=== PATIENT | female | born 1950 | race Caucasian/White ===

== ENCOUNTER → 2016-08-18 | Outpatient (CLI) | payer MEDICARE ==
--- NOTE | 2016-08-18 15:18 | US ---
EXAMINATION TYPE: US kidneys/renal and bladder DATE OF EXAM: 08/18/2016 1:51 PM COMPARISON: CT abdomen and pelvis 20 November 2014 CLINICAL HISTORY: hematuria. R 31.9 EXAM MEASUREMENTS: Right Kidney: 9.8 x 3.4 x 4.9 cm Left Kidney: 10.6 x 4.8 x 5.2 cm ANATOMY: Right Kidney: No hydronephrosis or masses seen Left Kidney: No hydronephrosis or masses seen Bladder: within normal limits Bilateral Jets seen: yes There is no evidence for hydronephrosis at this point in time. No nephrolithiasis is seen. No igo s are identified. The urinary bladder is anechoic. Bilateral ureteral jets are seen. Cortical medullary differentiation is maintained IMPRESSION: No abnormality evident to account for patient's symptoms. Normal Values: Renal Length = 9 - 12cm Bladder Wall: < 0.3cm
== END | disposition home or self-care (01) ==
LOC: RADUSWWP 13:34
PROVIDERS: ATTEND Internal Medicine Geriatric Medicine
DX: R31.9 Hematuria, unspecified (principal)
CPT/HCPCS: 76770

== ENCOUNTER → 2016-09-30 | Outpatient (CLI) | payer MEDICARE ==
--- NOTE | 2016-10-01 08:08 | MM ---
Reason for exam: screening (asymptomatic). Last mammogram was performed 1 year and 4 months ago. History: Patient is postmenopausal. Physical Findings: A clinical breast exam by your physician is recommended on an annual basis and results should be correlated with mammographic findings. MG 3D Screening Mammo W/Cad Bilateral CC and MLO view(s) were taken. Prior study comparison: May 20, 2015, bilateral MG screening mammo w CAD. December 03, 2011, bilateral digital screening mammo w/CAD. There are scattered fibroglandular densities. There is no discrete abnormality. No significant changes when compared with prior studies. ASSESSMENT: Negative, BI-RAD 1 RECOMMENDATION: Routine screening mammogram of both breasts in 1 year.
== END | disposition home or self-care (01) ==
LOC: RADMAMWWP 07:19
PROVIDERS: ATTEND Internal Medicine Geriatric Medicine
DX: Z12.31 Encounter for screening mammogram for malignant neoplasm of breast (principal)
CPT/HCPCS: 77063; G0202

== ENCOUNTER 2016-10-27 09:00 | Day surgery (SDC) | payer MEDICARE ==
[2016-10-26 11:39] VITALS: BMI 22.8
[~2016-10-27 09:00] MED LIST: LACTATED RINGERS 1,000 ML IV SCH
[2016-10-27 10:10] VITALS: TEMP 96.9
[2016-10-27] MEDS ORDERED: PROPOFOL 10 MG/ML 20 ML VIAL IV ONE ×2 (10:18→11:00)
[2016-10-27] MEDS ORDERED: LIDOCAINE 1% INJ 10MG/ML (20 ML MDV) ONE ×2 (10:18→11:00)
[2016-10-27] MEDS ORDERED: LIDOCAINE 1% 20 ML VIAL (10MG/ML) FOR IV START INTRADERMA ONE (10:19)
[2016-10-27 11:27] VITALS: RESP 18
--- NOTE | 2016-10-27 11:32 | P.PCN ---
Date of Procedure: 10/27/16 Procedure(s) Performed: Procedure: Colonoscopy and biopsy. Preoperative diagnosis: Abdominal pain and change in bowel habits. Postoperative diagnosis: 1. Mild diverticulosis with no evidence of acute diverticulitis or strictures. 2. Minimal erythema and friability in the rectum of on clear clinical significance. 3. Biopsies obtained from the terminal ileum right colon and rectum. Preparation: HalfLytely prep. Sedation: Was provided by anesthesia. Brief clinical history: The patient is a 66-year-old female who is referred for this evaluation because of abdominal pain and change in bowel habits mostly in the form off more frequent and less formed stools which she has been experiencing for the last month or so. The patient had 2 prior colonoscopies the last was in 2008. There is no history of polyps. Her base line was 2 well formed bowel movements daily. The patient has no bleeding or other alarm symptoms. This evaluation is to assess for inflammatory bowel disease or neoplasia or other pathology. Procedure: With the patient on her left lateral decubitus position and after informed consent and adequate sedation, the perianal area was inspected and it did not show any fissures or fistulas. There were no masses felt on digital rectal examination. The Olympus CFQ 160L video colonoscope was then inserted in the rectum in the usual fashion and advanced to the cecum. I was able to obtain a blind biopsy from the terminal ileum as well as biopsies from the right colon and rectum before the endoscope was withdrawn. There was occasional diverticular orifices seen in the sigmoid and around the hepatic flexure. I did not see any polyps or tumors. The mucosa in the rectum close to the anorectal junction showed some erythema and friability but there were no ulcers or spontaneous bleeding. The patient tolerated the procedure well. Plan: The patient was reassured. Will await biopsy results and make further plans based on her course and biopsy results. She will follow-up with you as planned and I will be happy to see in the office if her symptoms persist.
[2016-10-27 12:00] VITALS: BP 132/80; PULSE 69
== END 2016-10-27 12:25 | disposition home or self-care (01) ==
LOC: ORWHC2ENDO 09:00
DX: K57.30 Diverticulosis of large intestine without perforation or abscess without bleeding (principal); R19.4 Change in bowel habit; K62.89 Other specified diseases of anus and rectum; Z79.899 Other long term (current) drug therapy
CPT/HCPCS: 88305; 45380; J2001; J2704

== ENCOUNTER → 2016-11-03 | Outpatient (CLI) | payer MEDICARE ==
--- NOTE | 2016-11-03 10:25 | US ---
EXAMINATION TYPE: US abdomen complete DATE OF EXAM: 11/03/2016 8:19 AM COMPARISON: NONE CLINICAL HISTORY: 66-year-old female with R10.84 Generalized abdominal pain. TECHNIQUE: Multiple sonographic images of the abdomen were obtained. FINDINGS: Liver Length: 12.5 cm Gallbladder Wall: 0.2 cm CBD: 0.4 cm Spleen: 9.5 cm Right Kidney: 10.3 x 3.2 x 4.4 cm Left Kidney: 9.8 x 4.5 x 4.9 cm Pancreas: Grossly unremarkable. Liver: Multiple cysts noted largest measuring 3.3 x 2.7 x 3.6cm with a partially exophytic anterior wall. Gallbladder: No abnormal gallbladder distention, wall thickening, pericholecystic fluid, or shadow ing calculi. Evidence for sonographic Wray's sign: no CBD: wnl Spleen: wnl Right Kidney: No hydronephrosis Left Kidney: No hydronephrosis Upper IVC: wnl Abd Aorta: wnl IMPRESSION: A few hepatic cysts, largest measures 3.6 cm in the anterior left hepatic lobe.
== END | disposition home or self-care (01) ==
LOC: RADUSWWP 07:29
PROVIDERS: ATTEND Internal Medicine Geriatric Medicine
DX: K76.89 Other specified diseases of liver (principal)
CPT/HCPCS: 76700

== ENCOUNTER → 2017-05-25 | Outpatient (CLI) | payer MEDICARE ==
[2017-05-25 09:08] LABS: CH 30.9; CHCM 32.3; HCT 46.9 % (34.0-46.0); HDW 2.34; HGB 15.1 gm/dL (11.4-16.0); MCH 30.9 pg (25.0-35.0); MCHC 32.2 g/dL (31.0-37.0); MCV 95.9 fL (80.0-100.0); RBC 4.89 m/uL (3.80-5.40); WBC 4.8 k/uL (3.8-10.6)
[2017-05-25 10:17] LABS: C Reactive Protein 6.1 mg/L (<10.0)
[2017-05-25 10:43] LABS: Erythrocyte Sedimentation Rate 13 mm/hr (0-20)
[2017-05-25 16:58] LABS: Tis Transglutaminase IgA Unit <0.5 AI; Tis Transglutaminase IgG Unit <0.8 U/mL
== END | disposition home or self-care (01) ==
LOC: LABWHC1 08:24
DX: R19.4 Change in bowel habit (principal)
CPT/HCPCS: 36415; 83516; 84439; 84443; 85027; 85652; 86140; 89055

== ENCOUNTER → 2018-08-02 | Outpatient (CLI) | payer MEDICARE ==
--- NOTE | 2018-08-02 14:59 | USB ---
Reason for exam: clinical finding. History: Patient is postmenopausal. US Breast BILAT Right complete breast ultrasound includes all four quadrants, the retroareolar region and axilla. Finding demonstrates no cystic or solid lesion seen. Left complete breast ultrasound includes all four quadrants, the retroareolar region and axilla. Finding demonstrates no cystic or solid lesion seen. No suspicious sonographic finding. No solid or cystic masses. These results were verbally communicated with the patient and result sheet given to the patient on 08/02/18. ASSESSMENT: Incomplete: need additional imaging evaluation, BI-RAD 0 RECOMMENDATION: Follow-up diagnostic mammogram of both breasts.
--- NOTE | 2018-08-02 15:00 | MM ---
Reason for exam: additional evaluation requested from prior study. Last mammogram was performed 1 year and 10 months ago. History: Patient is postmenopausal. MG 3D Diag Mammo W/Cad DENG Bilateral CC and MLO view(s) were taken. Prior study comparison: September 30, 2016, bilateral MG 3d screening mammo w/cad. May 20, 2015, bilateral MG screening mammo w CAD. The breast tissue is heterogeneously dense. This may lower the sensitivity of mammography. No suspicious abnormality. These results were verbally communicated with the patient and result sheet given to the patient on 08/02/18. ASSESSMENT: Negative, BI-RAD 1 RECOMMENDATION: Routine screening mammogram of both breasts in 1 year.
== END | disposition home or self-care (01) ==
LOC: RADUSWWP 12:50
PROVIDERS: ATTEND Internal Medicine Geriatric Medicine
DX: N64.4 Mastodynia (principal)
CPT/HCPCS: 77066; 76641; G0279; 77062

== ENCOUNTER → 2019-09-14 | Outpatient (CLI) | payer MEDICARE ==
--- NOTE | 2019-09-15 13:36 | MM ---
Reason for exam: screening (asymptomatic). Last mammogram was performed 1 year and 1 month ago. History: Patient is postmenopausal. Physical Findings: A clinical breast exam by your physician is recommended on an annual basis and results should be correlated with mammographic findings. MG 3D Screening Mammo W/Cad Bilateral CC and MLO view(s) were taken. Prior study comparison: August 02, 2018, bilateral MG 3d diag mammo w/cad DENG. September 30, 2016, bilateral MG 3d screening mammo w/cad. The breast tissue is heterogeneously dense. This may lower the sensitivity of mammography. No suspicious abnormality. No significant changes when compared with prior studies. ASSESSMENT: Negative, BI-RAD 1 RECOMMENDATION: Routine screening mammogram of both breasts in 1 year.
== END | disposition home or self-care (01) ==
LOC: RADMAMWWP 08:14
PROVIDERS: ATTEND Internal Medicine Geriatric Medicine
DX: Z12.31 Encounter for screening mammogram for malignant neoplasm of breast (principal)
CPT/HCPCS: 77063; 77067

== ENCOUNTER → 2020-07-29 | Outpatient (CLI) | payer MEDICARE ==
--- NOTE | 2020-07-29 10:01 | XR ---
EXAMINATION TYPE: XR chest 2V DATE OF EXAM: 07/29/2020 COMPARISON: NONE TECHNIQUE: PA and lateral views submitted. HISTORY: Cough FINDINGS: The lungs are clear and there is no pneumothorax, pleural effusion, or focal pneumonia. Heart size normal. No overt failure. Hyperinflation suggests COPD. Hypertrophic and degenerative change of the s pine. IMPRESSION: 1. No acute process.
== END | disposition home or self-care (01) ==
LOC: RADXRMAIN 08:15
PROVIDERS: ATTEND Otolaryngology
DX: R05 Cough (principal)
CPT/HCPCS: 71046

== ENCOUNTER → 2020-10-16 | Outpatient (CLI) | payer MEDICARE ==
--- NOTE | 2020-10-18 11:42 | MM ---
Reason for exam: screening (asymptomatic). Last mammogram was performed 1 year and 1 month ago. History: Patient is postmenopausal. Physical Findings: A clinical breast exam by your physician is recommended on an annual basis and results should be correlated with mammographic findings. MG 3D Screening Mammo W/Cad Bilateral CC and MLO view(s) were taken. Prior study comparison: September 14, 2019, bilateral MG 3d screening mammo w/cad. August 02, 2018, bilateral MG 3d diag mammo w/cad DENG. The breast tissue is heterogeneously dense. This may lower the sensitivity of mammography. No significant changes when compared with prior studies. ASSESSMENT: Negative, BI-RAD 1 RECOMMENDATION: Routine screening mammogram of both breasts in 1 year.
== END ==
LOC: RADMAMWWP 08:17
PROVIDERS: ATTEND Internal Medicine Geriatric Medicine
DX: Z12.31 Encounter for screening mammogram for malignant neoplasm of breast (principal); Z78.0 Asymptomatic menopausal state
CPT/HCPCS: 77063; 77067

== ENCOUNTER → 2021-01-22 | Outpatient (CLI) | payer MEDICARE ==
--- NOTE | 2021-01-22 13:40 | CONS ---
CONSULTATION DATE OF SERVICE: 01/22/2021 INDICATIONS: This is a 70-year-old lady who has been evaluated in the sleep center for possible obstructive sleep apnea-hypopnea syndrome. HISTORY OF PRESENT ILLNESS/SLEEP-WAKE EVALUATION: Patient's usual sleep schedule from 10 or 11 p.m. until 6:15 a.m. Sometimes she has difficulties to fall asleep, although no TV in the bedroom. She usually sleeps in the back position. According to her , she snores. She wakes up from sleep 3 times with 2 episodes of nocturia. She also wakes up with a dry mouth. In the morning patient wakes up tired. Sometimes has episodes of irritability and anxiety. Tennille Sleepiness Scale increased to 11. The patient may take nap around 12:30 in the afternoon. Rarely feels refreshed after nap. No history of hypnagogic hallucinations, sleep paralysis or cataplexy. PAST MEDICAL HISTORY: Positive for hypertension, hyperlipidemia, acid reflux. PAST SURGICAL HISTORY: One of the parathyroid glands has been removed because of significant increasing of size. MEDICATIONS: Chlorthalidone half tablet of 25 mg once a day. Pantoprazole 30 mg once a day. SOCIAL HISTORY: Negative for smoking or using alcohol. FAMILY HISTORY: Positive for heart problems, cancer, diabetes. REVIEW OF SYSTEMS: Snoring, multiple awakenings from sleep, feeling tightness and sleepiness during the day. No fevers. No double vision. No recent chest pain. No shortness of breath. No abdominal pain. No bleeding episodes. No blood in the urine. No seizure episodes. PHYSICAL EXAMINATION: GENERAL: lady without distress. VITAL SIGNS: BP 146/87, HR 91, RR 14, height 5' 4 ", weight 125.0, body mass index 21.4, temperature 97.5, oxygen saturation at room air 98%. HEENT: PERRLA, EOMI, evaluation of oropharynx showed tongue protrudes midline. Low position of soft palate, Mallampati IV. NECK: Supple, no JVD. Thyroid is not palpable. LUNGS: Clear to percussion and to auscultation. Good air exchange. No wheezing or rhonchi. HEART: S1, S2 regular. No murmurs, gallops, or rubs. ABDOMEN: Soft and nontender. Bowel sounds are present. No organomegaly appreciated. EXTREMITIES: No clubbing or cyanosis. SCRAP DEALER: Awake, alert, and oriented X3. Cranial nerves 2 to 7 intact. There is no fasciculation or atrophy. noted. No focal deficits observed. IMPRESSION: 1. Sleepiness during the day. Tennille sleepiness scale increased to 11. 2. Snoring, multiple awakenings from sleep, extremely low position of soft palate, Mallampati IV. Possible obstructive sleep apnea-hypopnea syndrome. 3. History of hypertension. 4. Hyperlipidemia. 5. Acid reflux. 6. Status post one parathyroid gland removed because of significant increase in size. PLAN: 1. Home sleep apnea test for checking the patient's breathing during sleep. 2. CPAP/BiPAP titration if sleep study confirms obstructive sleep apnea-hypopnea syndrome. 3. Preferable position during sleep on the side. 4. No driving if patient feels any sleepiness. 5. I will see patient for follow up visit to explain results of testing and following plan. Thank you very much for referring this patient for consultation. Sincerely, Rafita Shultz MD, PhD, FAASM Diplomat of [employer]r [employer] [facility] [place] MMODL / IJN: [id number] /
== END ==
LOC: SLEEP 10:39
PROVIDERS: ATTEND Internal Medicine
DX: G47.10 Hypersomnia, unspecified (principal); E78.5 Hyperlipidemia, unspecified; I10 Essential (primary) hypertension; K21.9 Gastro-esophageal reflux disease without esophagitis; Z90.89 Acquired absence of other organs
CPT/HCPCS: 99211

== ENCOUNTER 2021-04-25 08:49 | Day surgery (SDC) | payer MEDICARE ==
[2021-04-24 09:43] VITALS: BMI 19.2
[2021-04-25 09:24] VITALS: TEMP 98.5
[2021-04-25] MEDS: LACTATED RINGERS 1,000 ML IV SCH ×2 (09:31→09:34)
[2021-04-25] MEDS ORDERED: ONDANSETRON 4 MG/2 ML VIAL ONE (09:32)
[2021-04-25] MEDS ORDERED: ONDANSETRON 4 MG/2 ML VIAL IVP ONE (09:33)
[2021-04-25] MEDS ORDERED: LIDOCAINE 1% INJ 10MG/ML (20 ML MDV) ONE (09:37)
[2021-04-25] MEDS ORDERED: PROPOFOL 10 MG/ML 20 ML VIAL IV ONE (09:37)
--- NOTE | 2021-04-25 10:04 | P.PCN ---
Date of Procedure: 04/25/21 Procedure(s) Performed: Brief history: Patient is a pleasant 70-year-old white female scheduled for an elective upper endoscopy as well as colonoscopy as a part of evaluation of epigastric pain, intermittent diarrhea and weight loss of 30 pounds in the last 6 months duration. He was treated with omeprazole and Protonix with no help. Procedure performed: Esophagogastroduodenoscopy with biopsy Colonoscopy with random biopsies Preoperative diagnosis: Epigastric pain/change in bowel habits/progressive weight loss of 30 pounds since onset of the Anesthesia: MAC Procedure: After informed consent was obtained from the patient was brought into the endoscopy unit and IV sedation was administered by anesthesia under continuous monitoring. Initially upper endoscopy was done. The Olympus GF 160 video endoscope was inserted inserted into the mouth and esophagus intubated without any difficulty and was gradually advanced into the stomach and duodenum and carefully examined. The bulb and second part of the duodenum appeared normal. Abscesses were done from the duodenum to rule out celiac disease. The scope was then withdrawn into the stomach adequately insufflated with air and upon careful examination the antrum had mild gastritis and biopsies were done from this area. The body, cardia and fundus appeared normal. The scope was then withdrawn into the esophagus. The GE junction was located at 40 cm to the incisors. It appeared regular witerythema and erosions consistent with LA grade B reflux esophagitis.Rest of the esophagus appeared normal. Patient tolerated the procedure well. At this time the patient continued to remain sedation. Initial digital rectal examination was normal. Olympus CF 160 video colonoscope was then inserted into the rectum and gradually advanced to the cecum without any difficulty. Careful examination was performed as the scope was gradually being withdrawn. The prep was excellent. The cecum, ascending colon, transverse colon, descending colon, sigmoid colon and rectum appeared normal. Scattered sigmoid diverticulosis. Random biopsies were done from ascending and descending colon to rule out microscopic/collagenous colitis. Retroflexion was performed in the rectum and no lesions were noted. Patient tolerated the procedure well. Impression: 1. Upper endoscopy revealed mild antral gastritis and LA grade B reflux esophagitis. 2. Colonoscopy was essentially within normal limits with no evidence of colitis or colorectal neoplasia. Recommendations: Findings of this examination were discussed with the patient as well as
[2021-04-25 10:22] VITALS: BP 120/81; PULSE 70; RESP 16
== END 2021-04-25 10:46 | disposition home or self-care (01) ==
LOC: ORWHC2ENDO 08:49
PROVIDERS: ATTEND Internal Medicine Gastroenterology
DX: K29.50 Unspecified chronic gastritis without bleeding (principal); K21.00 Gastro-esophageal reflux disease with esophagitis, without bleeding; R19.7 Diarrhea, unspecified
CPT/HCPCS: 88305; 45380; 43239; J2405; J2001; J2704

== ENCOUNTER → 2021-11-11 | Outpatient (CLI) | payer MEDICARE ==
--- NOTE | 2021-11-12 10:17 | MM ---
Reason for exam: screening (asymptomatic). Last mammogram was performed 1 year and 1 month ago. History: Patient is postmenopausal. Physical Findings: A clinical breast exam by your physician is recommended on an annual basis and results should be correlated with mammographic findings. MG 3D Screening Mammo W/Cad Bilateral CC and MLO view(s) were taken. Prior study comparison: October 16, 2020, bilateral MG 3d screening mammo w/cad. September 14, 2019, bilateral MG 3d screening mammo w/cad. The breast tissue is heterogeneously dense. This may lower the sensitivity of mammography. There is no discrete abnormality. ASSESSMENT: Negative, BI-RAD 1 RECOMMENDATION: Routine screening mammogram of both breasts in 1 year.
== END | disposition home or self-care (01) ==
LOC: RADMAMWWP 14:55
PROVIDERS: ATTEND Internal Medicine Geriatric Medicine
DX: Z12.31 Encounter for screening mammogram for malignant neoplasm of breast (principal); Z78.0 Asymptomatic menopausal state
CPT/HCPCS: 77063; 77067

== ENCOUNTER → 2021-12-11 | Outpatient (CLI) | payer MEDICARE ==
--- NOTE | 2021-12-11 22:26 | BD ---
EXAMINATION TYPE: Axial Bone Density DATE OF EXAM: 12/11/2021 COMPARISON: NONE CLINICAL HISTORY: 71 years year old Female. ICD-10 CODE: M81.0 OSTEOPOROSIS Height: 64 Weight: 118.2 FRAX RISK QUESTIONS: Alcohol (3 or more units per day): NO Family History (Parent hip fracture): NO Glucocorticoids (More than 3mos): NO (Ex: prednisone, prednisolone, methylprednisolone, dexamethasone, and hydrocortisone). History of Fracture in Adulthood: NO Secondary Osteoporosis: 1. Type 1 Diabetes: NO 2. Hyperthyroidism: YES 3. Menopause before 45: YES 4. Malnutrition: NO 5. Chronic liver disease: NO Rheumatoid Arthritis: NO Current Tobacco Use: NO RISK FACTORS HISTORY OF: Hip Fracture (Right/Left): NO Spine Fracture: NO History of Wrist Fracture: NO Surgery to Spine/Hip(right/left)/Wrist (right/left): NO Family History of Osteoporosis: NO Active: YES Diet low in dairy products/other sources of calcium: YES Postmenopausal woman: YES Take estrogen and/or progesterone medications: NO Lost more than 2 inches in height since high school: NO Frequent falls: NO Poor Health: NO Hyperparathyroidism: YES, ONE PARATHYROID GLAND REMOVED 2011 Adrenal Insufficiency: NO MEDICATIONS: Prednisone or other steroids: NO Thyroid Medications: NO Additional Medications: BP MEDS, CALCIUM, MAGNI USM, EXAM MEASUREMENTS: Bone mineral densitometry was performed using the [employer] [place] System. Bone mineral density as measured about the Lumbar spine is: ----- L1-L4(G/cm2): 0.899 T Score Values are as follows: ----- L1: -2.2 ----- L2: -2.9 ----- L3: -2.2 ----- L4: -2.32 ----- L1-L4: -2.3 Bone mineral density has: DECREASED 3.2% since study of: 07/17/2015 Bone mineral density about the R hip (g/cm2): 0.894 Bone mineral density about the L hip (g/cm2): 0.853 T Score values are as follows: -----R Neck: -1.0 -----L Neck: -1.3 -----R Total: -1.0 -----L Total: -1.6 Bone mineral density has: DECREASED 8.9% since study of: 07/17/2015 FRAX%s: The graph provided illustrates a 8.9% chance for a major osteoporotic fx and a 1.5% chance fo r the hips probability for fx in 10 years time. IMPRESSION: Osteopenia (T Score between -2.5 and -1). There is slightly increased risk of fracture and the patient may be considered for treatment. Re-Screen 2-5 years. NOTE: T-SCORE=SD OF THE YOUNG ADULT MEAN.
== END | disposition home or self-care (01) ==
LOC: RADBDWWP 07:59
PROVIDERS: ATTEND Internal Medicine Geriatric Medicine
DX: M85.89 Other specified disorders of bone density and structure, multiple sites (principal); Z78.0 Asymptomatic menopausal state
CPT/HCPCS: 77080

== ENCOUNTER → 2022-11-05 | Outpatient (CLI) | payer MEDICARE ==
--- NOTE | 2022-11-06 07:28 | US ---
EXAMINATION TYPE: US kidneys/renal and bladder DATE OF EXAM: 11/05/2022 COMPARISON: US 2017 CLINICAL HISTORY: R10.2 PELVIC PAIN. Left flank and back pain EXAM MEASUREMENTS: Right Kidney: 9.0 x 4.4 x 5.0 cm Left Kidney: 10.3 x 4.4 x 5.0 cm Right Kidney: No hydronephrosis or masses seen Left Kidney: No hydronephrosis or masses seen Bladder: wnl Bilateral Jets seen: Yes There is no evidence for hydronephrosis at this point in time. No nephrolithiasis is seen. No gio s are identified. The urinary bladder is anechoic. Bilateral ureteral jets are seen. IMPRESSION: No discrete abnormality seen.
== END | disposition home or self-care (01) ==
LOC: RADUSWWP 16:13
PROVIDERS: ATTEND Internal Medicine Geriatric Medicine
DX: R10.2 Pelvic and perineal pain (principal); M54.9 Dorsalgia, unspecified
CPT/HCPCS: 76770

== ENCOUNTER → 2022-11-20 | Outpatient (CLI) | payer MEDICARE ==
--- NOTE | 2022-11-20 08:55 | CT ---
EXAMINATION TYPE: CT abdomen pelvis w con DATE OF EXAM: 11/20/2022 HISTORY: abd pain Generalized. CT DLP: 361.3mGycm Automated Exposure Control for Dose Reduction was Utilized. CONTRAST: CT scan of the abdomen and pelvis is performed with IV Contrast, patient injected with 100 mL of Isov ue 300. COMPARISON: CT abdomen and pelvis November 20, 2014 FINDINGS: LUNG BASES: Mild bibasilar linear scarring and/or atelectasis. LIVER/GB: Stable 3.9 cm thin-walled cyst and additional smaller thin-walled cysts scattered throughou t the liver are redemonstrated. PANCREAS: No significant abnormality is seen. SPLEEN: No significant abnormality is seen. ADRENALS: No significant abnormality is seen. KIDNEYS: No significant abnormality is seen. BOWEL: Oral contrast reaches level of the rectum. No suspicious small or large bowel dilatation. Area s of mild wall thickening in the sigmoid colon without significant fat stranding. UTERUS/ADNEXA: Anteverted uterus. LYMPH NODES: No greater than 1cm abdominal or pelvic lymph nodes are appreciated. OSSEOUS STRUCTURES: Prominent Schmorl most superior L5 endplate. Osseous structures are demineralized . Underlying scoliosis. OTHER: Narrowing at the celiac artery origin such as image 61 for reference. IMPRESSION: Possible mild uncomplicated distal colitis though suspect this is a chronic finding. No b owel obstruction. 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 No acute findings otherwise present.
== END | disposition home or self-care (01) ==
LOC: RADCTMAIN 07:23
PROVIDERS: ATTEND Internal Medicine Geriatric Medicine
DX: K57.93 Diverticulitis of intestine, part unspecified, without perforation or abscess with bleeding (principal)
CPT/HCPCS: 82565; 84520; 74177; 36415; Q9967

== ENCOUNTER 2023-03-19 12:09 | Day surgery (SDC) | payer MEDICARE ==
[2023-03-18 09:52] VITALS: BMI 19.6
[~2023-03-19 12:09] MED LIST changes: -LACTATED RINGERS 1,000 ML IV SCH; +LIDOCAINE 1% (10MG/ML) FOR IV START INTRADERMA PRN
[2023-03-19] MEDS: LACTATED RINGERS 1,000 ML IV SCH ×2 (12:42→13:03)
[2023-03-19 12:43] VITALS: RESP 16; TEMP 98.8
[2023-03-19] MEDS ORDERED: PROPOFOL 10 MG/ML 20 ML VIAL IV ONE (13:04)
--- NOTE | 2023-03-19 13:23 | P.PCN ---
Date of Procedure: 03/19/23 Procedure(s) Performed: BRIEF HISTORY: Patient is a 72-year-old pleasant white female scheduled for an elective colonoscopy as a part of evaluation of left lower quadrant abdominal pain for the last several days duration. She recently had a CT of abdomen and pelvis done that showed thickening of the sigmoid colon. His and scheduled for colonoscopy to evaluate further. PROCEDURE PERFORMED: Colonoscopy with biopsy and snare polypectomy. PREOPERATIVE DIAGNOSIS: Left lower quadrant abdominal pain and abnormal CAT scan of abdomen. IV sedation per Anesthesia. PROCEDURE: After informed consent was obtained, the patient, was brought into the endoscopy unit. IV sedation was administered by Anesthesia under continuous monitoring. Digital rectal examination was normal. Initially the Olympus CF-160 flexible video colonoscope was then inserted in the rectum, gradually advanced into the cecum without any difficulty. Careful examination was performed as the scope was gradually being withdrawn. Ileocecal valve and the appendiceal orifice were visualized and appeared normal. Prep was excellent. Mucosa of the cecum, adequately millimeters polyp that was removed by cold biopsy. In the ascending colon there were 2 flat polyps measuring 5-6 mm in size both of which were removed by cold snare polypectomy. Rest of the ascending colon, transverse colon, descending colon, sigmoid colon, and rectum appeared normal. Scattered sigmoid diverticulosis. Retroflexion was performed in the rectum and no lesions were seen. The patient tolerated the procedure well. IMPRESSION: 3 mm cecal polyp status post cold biopsy 5 mm flat ascending colon polyp 2 status post cold snare polypectomy Scattered sigmoid diverticulosis RECOMMENDATIONS: Findings of this examination were discussed with the patient as well as a family. She was advised to follow with the biopsy results. If the biopsy was adenoma she can have a repeat colonoscopy in 5 years..
[2023-03-19 13:44] VITALS: BP 119/77; PULSE 85
== END 2023-03-19 14:03 | disposition home or self-care (01) ==
LOC: ORWHC2ENDO 12:09
PROVIDERS: ATTEND Internal Medicine Gastroenterology
DX: K57.30 Diverticulosis of large intestine without perforation or abscess without bleeding (principal); D12.0 Benign neoplasm of cecum; D12.2 Benign neoplasm of ascending colon; I10 Essential (primary) hypertension; G47.33 Obstructive sleep apnea (adult) (pediatric); K21.9 Gastro-esophageal reflux disease without esophagitis; F41.9 Anxiety disorder, unspecified; Z79.899 Other long term (current) drug therapy
CPT/HCPCS: 88305; 45380; 45385; J2704

== ENCOUNTER → 2023-04-13 | Outpatient (CLI) | payer MEDICARE ==
--- NOTE | 2023-04-15 00:29 | MM ---
Reason for Exam: Screening (asymptomatic). Last mammogram was performed 1 year(s) and 5 month(s) ago. Patient History: Menarche at age 11. First Full-Term at age 19. Postmenopausal. Mother had ovarian cancer, age 65. Risk Values: Rosa 5 year model risk: 1.6%. NCI Lifetime model risk: 3.9%. Prior Study Comparison: 09/14/2019 Bilateral Screening Mammogram, [facility]. 10/16/2020 Bilateral Screening Mammogram, [facility]. 11/11/2021 Bilateral Screening Mammogram, [facility]. Tissue Density: The breast tissue is heterogeneously dense. This may lower the sensitivity of mammography. Findings: Analyzed By CAD. There is no suspicious group of microcalcifications or new suspicious mass in either breast. Overall Assessment: Negative, BI-RAD 1 Management: Screening Mammogram of both breasts in 1 year. . Patient should continue monthly self-breast exams. A clinical breast exam by your physician is recommended on an annual basis. This exam should not preclude additional follow-up of suspicious palpable abnormalities. Note on Rosa scores and lifetime risk: 1. A Rosa score greater than 3% is considered moderate risk. If this is the case, consider specialist referral to assess eligibility for a risk reducing agent. 2. If overall lifetime risk for the development of breast cancer is 20% or higher, the patient may qualify for future screening with alternating mammogram and breast MRI. Electronically signed and approved by: Chen Villeda M.D. Radiologist
== END | disposition home or self-care (01) ==
LOC: RADMAMWWP 07:21
PROVIDERS: ATTEND Nurse Practitioner Family
DX: Z12.31 Encounter for screening mammogram for malignant neoplasm of breast (principal); Z78.0 Asymptomatic menopausal state; R92.8 Other abnormal and inconclusive findings on diagnostic imaging of breast
CPT/HCPCS: 77063; 77067

== ENCOUNTER → 2023-09-02 | Outpatient (CLI) | payer MEDICARE ==
--- NOTE | 2023-09-02 13:27 | US ---
EXAMINATION TYPE: US venous doppler duplex LE RT DATE OF EXAM: 09/02/2023 1:16 PM COMPARISON: NONE CLINICAL INDICATION: Female, 73 years old with history of M79.604 PAIN IN RT LEG; Right leg pain afte r fall SIDE PERFORMED: Right TECHNIQUE: The lower extremity deep venous system is examined utilizing real time linear array sonog ricardo with graded compression, doppler sonography and color-flow sonography. VESSELS IMAGED: Common Femoral Vein Deep Femoral Vein Greater Saphenous Vein * Femoral Vein Popliteal Vein Small Saphenous Vein * Proximal Calf Veins Posterior tibial veins (* superficial vessels) Right Leg: Negative for DVT IMPRESSION: No evidence for DVT within the right lower extremity.
== END | disposition home or self-care (01) ==
LOC: RADUSWWP 12:57
PROVIDERS: ATTEND Internal Medicine Geriatric Medicine
DX: M79.604 Pain in right leg (principal)

== ENCOUNTER → 2023-09-21 | Outpatient (CLI) | payer MEDICARE ==
[2023-09-21 10:59] LABS: African American GFR (CKD) >90 (>60 ml/min/1.73 sqM); Blood Urea Nitrogen 18 mg/dL (7-17); Non-African American GFR(CKD) 79 (>60 ml/min/1.73 sqM)
--- NOTE | 2023-09-21 12:13 | CT ---
EXAMINATION TYPE: CT abdomen pelvis w con CT DLP: 366.3 mGycm, Automated exposure control for dose reduction was used. DATE OF EXAM: 09/21/2023 11:21 AM COMPARISON: 11/20/2022 CLINICAL INDICATION:Female, 73 years old with history of K57.93 diverticulitis; Diverticulitis and bl ood in stool TECHNIQUE: Axial CT abdomen pelvis w con;Sagittal and coronal reformats were created on a separate w orkstation. Contrast used:100 mL of Isovue 300 with IV Contrast, (none if empty) Oral contrast used: with Oral Contrast (none if empty) FINDINGS: LOWER CHEST: Unremarkable ABDOMEN LIVER: Scattered simple appearing hepatic cyst. GALLBLADDER AND BILE DUCTS: Unremarkable. PANCREAS: Unremarkable. SPLEEN: Unremarkable. ADRENAL GLANDS: Unremarkable. KIDNEYS AND URETERS: No evidence of hydronephrosis or renal calculus. The ureters are unremarkable. PELVIS BLADDER: Unremarkable REPRODUCTIVE: Unremarkable. ABDOMEN & PELVIS STOMACH AND BOWEL: No evidence of bowel obstruction. Oral contrast extends to the rectum. There is sc attered colonic diverticula. No evidence for acute diverticulitis. PERITONEUM/RETROPERITONEUM: No evidence of pneumoperitoneum or free fluid. VASCULATURE: No evidence of aortic aneurysm. MUSCULOSKELETAL: No acute osseous abnormalities LYMPH NODES: No gross evidence for lymphadenopathy. SOFT TISSUE/ABDOMINAL WALL: Unremarkable IMPRESSION: No evidence for diverticulitis or acute abdominal process.
== END | disposition home or self-care (01) ==
LOC: RADCTMAIN 10:13
PROVIDERS: ATTEND Internal Medicine Geriatric Medicine
DX: K57.93 Diverticulitis of intestine, part unspecified, without perforation or abscess with bleeding (principal); K92.1 Melena
CPT/HCPCS: 82565; 84520; 74177; 36415; Q9967

== ENCOUNTER → 2024-05-18 | Outpatient (CLI) | payer MEDICARE ==
[2024-05-18 09:56] LABS: African American GFR (CKD) >90 (>60 ml/min/1.73 sqM); Blood Urea Nitrogen 20 mg/dL (7-17); Non-African American GFR(CKD) 78 (>60 ml/min/1.73 sqM)
--- NOTE | 2024-05-18 11:48 | CT ---
CT urogram with and without contrast HISTORY: Gross hematuria. COMPARISON: CT abdomen and pelvis dated 09/21/2023 FINDINGS: Lung bases are clear. On the pre-IV contrast images, there are no renal calcifications or ureteral calcifications. There a re no gallstones. The gallbladder is normal and there is no distention or biliary ductal dilatation. There are multiple stable liver cysts the largest is in the medial segment of left lobe of liver angelina ures 3.8 cm. There are no solid or enhancing masses within the liver, pancreas, spleen or adrenal gla nds. There is no organomegaly. Kidneys excrete contrast promptly and symmetrically and there is no solid renal mass, hydronephrosis or filling defect within the renal collecting systems, ureters or urinary bladder. The bowel loops are normal in caliber and there is no dilatation or obstruction. No inflammatory khan ges are identified in the bowel wall or mesentery. There is no free intraperitoneal air or fluid. There is no pelvic mass, free fluid, abscess or adenopathy. The osseous structures are intact. IMPRESSION: No significant abnormality seen.. [facility], , 05/18/2024 11:45 AM
== END | disposition home or self-care (01) ==
LOC: RADCTMAIN 09:18
PROVIDERS: ATTEND Urology
DX: R31.0 Gross hematuria (principal); K76.89 Other specified diseases of liver
CPT/HCPCS: 82565; 84520; 74178; 74400; Q9967

== ENCOUNTER → 2024-11-08 | Outpatient (CLI) | payer MEDICARE ==
[2024-11-08 13:55] VITALS: BP 132/86; PULSE 86; RESP 16; TEMP 98
--- NOTE | 2024-11-08 14:23 | P.SLEEP ---
History of Present Illness DATE: 11/08/2024 CONSULTATION/NEW PATIENT EVALUATION HISTORY OF PRESENT ILLNESS/SLEEP-WAKE EVALUATION: 74-year-old lady had been e valuated in the sleep center for possible obstructive sleep apnea hypopnea syndrome. Patient had home sleep apnea test in 2020. Test was positive, but patient had some problems related to the belt. SLEEP SCHEDULE: Usually sleep schedule from 1011 PM to 5:45 AM. FALLING ASLEEP: Usually no significant problems with falling asleep. DURING SLEEP: Patient snores and wakes up from sleep 3 times with nocturia, dry mouth, heartburn, sweating. No history of hypnogogical hallucinations, sleep paralysis, or cataplexy. DURING THE DAY/WAKE STATE: In the morning patient feels tired. [place] sleepin ess scale is 10. Patient takes 1 nap during the day around 1 PM. PAST MEDICAL HISTORY: Hypertension, anxiety, acid reflux. PAST SURGICAL HISTORY: Parathyroidectomy from one side. MEDICATIONS: Have been reviewed, please see below. SOCIAL HISTORY: Please see below. FAMILY HISTORY: See below. REVIEW OF SYSTEMS: Snoring, multiple awakenings from sleep, sleepiness during the day. No fevers. No double vision. No recent chest pain. No shortness of breath. No abdominal pain. No bleeding episodes. No blood in urine. No seizure episodes. PHYSICAL EXAMINATION: GENERAL: A pleasant patient without any distress. VITAL SIGNS: Please see below, weight 117 pounds, BMI 20.7. HEENT: PERRLA, EOMI. Evaluation of oropharynx showed tongue protrudes midline, low position of soft palate Mallampati 3. NECK: Supple. No JVD. Thyroid is not palpable. 12 inches in circumference. LUNGS: Clear to percussion and to auscultation. Good air exchange. No wheezing or rhonchi. HEART: S1, S2 regular. No murmurs, gallops or rubs. ABDOMEN: Soft and nontender. Bowel sounds are present. No organomegaly appreciated. EXTREMITIES: No clubbing or cyanosis. ELA TEACHER: Awake, alert, and oriented x3. Cranial nerves 2 to 7 intact. There is no fasciculation or atrophy noted. No focal deficits observed. ASSESSMENT: 1. Snoring, multiple awakenings from sleep, history of obstructive sleep apnea in the past. Obstructive sleep apnea hypopnea syndrome. 2. Hypertension. 3. History of anxiety. 4. Acid reflux. 5 colectomy on one side. PLAN: 1. Polysomnography for evaluation of patient's breathing during sleep. 2. Following plan after reading sleep study 3. Preferable position during sleep on the side. 4. No driving if patient feels any sleepiness. Patient is aware of civil and criminal liability for unsafe driving. 5. Sleep hygiene with regular sleep time for at least 7.5-8 hours. 6. Watching weight. Thank you very much for referring this patient for consultation. Sincerely, Rafita Shultz MD, PhD, FAASM. Diplomat of [place] [employer], Sleep Medicine Board by [employer] [employer] [employer] Floor Plan Adjuster of [facility] [place] cc: Deuce Cintron MD Past Medical History Past Medical History: GERD/Reflux, Hearing Disorder / Deafness, Hypertension, Sleep Apnea/CPAP/BIPAP Additional Past Medical History / Comment(s): Hearing loss left ear., (30%)., sleep apnea - unable to use machine., raynauds, diarrhea, pain left side. History of Any Multi-Drug Resistant Organisms: None Reported Additional Past Surgical History / Comment(s): parathyroid surgery (2011), colonoscopy, EGD. Past Anesthesia/Blood Transfusion Reactions: Previous Problems w/ Anesthesia, Motion Sickness, Postoperative Nausea & Vomiting (PONV) Past Psychological History: Anxiety Smoking Status: Never smoker Past Alcohol Use History: None Reported Past Drug Use History: None Reported - Past Family History Mother Family Medical History: Cancer Additional Family Medical History / Comment(s): ovarian cancer, pts aunt had intestinal cancer Father Family Medical History: Diabetes Mellitus Additional Family Medical History / Comment(s): ANGINA Brother(s) Family Medical History: Diabetes Mellitus Medications and Allergies Home Medications Medication Instructions Recorded Confirmed Type ALPRAZolam [Xanax] 0.5 tab PO DIRECTED PRN 04/24/21 11/08/24 History Acetaminophen Tab [Tylenol] 325 mg PO DIRECTED PRN 04/24/21 03/18/23 History Chlorthalidone [Hygroton] 12.5 mg PO DAILY 04/24/21 11/08/24 History Krill/[place]-3/Dha/Epa/Lipids 1 each PO DAILY 04/24/21 03/18/23 History [Krill Oil 350 mg Softgel] Multivit-Min/FA/Lycopen/Lutein 1 each PO DAILY 04/24/21 03/18/23 History [Centrum Silver Tablet] Calcium Carbonate [Calcium] 800 mg PO DAILY 03/18/23 03/18/23 History Magnesium 200 mg PO DAILY 03/18/23 03/18/23 History Allergies Allergy/AdvReac Type Severity Reaction Status Date / Time Iodinated Contrast Media AdvReac Unknown Diarrhea Verified 03/19/23 12:35 Physical Exam Vitals: Vital Signs Temp Pulse Resp BP Pulse Ox 11/08/24 13:54 98 F 86 16 132/86 98 Intake and Output 11/07/24 11/08/24 11/08/24 22:59 06:59 14:59 Other: Weight 53.07 kg Sleep Note - Sleep Data ESS Total: 10 - Sleep Note Sleep Note: Temperature: 98 F Pulse Rate: 86 Respiratory Rate: 16 Blood Pressure: 132/86 SpO2: 98 Height: 5 ft 3 in Weight: 53.07 kg BMI: Neck Circumference: 12
== END ==
LOC: 3 N SLEEP 13:40
PROVIDERS: ATTEND Internal Medicine
DX: G47.33 Obstructive sleep apnea (adult) (pediatric) (principal); I10 Essential (primary) hypertension; K21.9 Gastro-esophageal reflux disease without esophagitis; Z86.59 Personal history of other mental and behavioral disorders; Z90.49 Acquired absence of other specified parts of digestive tract; Z91.041 Radiographic dye allergy status
CPT/HCPCS: 99211

== ENCOUNTER 2024-11-27 19:46 | Outpatient (CLI) | payer MEDICARE ==
--- NOTE | 2024-11-30 17:16 | P.PCN ---
Description of Procedure: POLYSOMNOGRAPHY REPORT PROCEDURE(S)/DATE(S): Polysomnography 11/27/2024 CLINICAL: Patient has been seen in the sleep center for evaluation of obstructive sleep apnea-hypopnea syndrome. Please see my consultation. Sleep study has been done for evaluation of patient breathing during the sleep. PROCEDURE: The standard montage for clinical polysomnography included the electroencephalogram, the electrooculogram, the mentalis surface electromyography and Lead II cardiography. The respiratory battery consisted of measurements of nasal/buccal air flow, pressure transducer measurements from nose, thoracic and/or abdominal effort and intercostal surface electromyography. Video monitoring has been done to check for any parasomnia events. Nocturnal oxyhemoglobin saturations were obtained by finger oximetry. Step-uriarte titration with positive airway pressure was utilized to control the respiratory events, if necessary. RESULTS: During the diagnostic sleep study sleep efficiency was slightly decreased to 84.3%. Latency to sleep onset was normal 11.0 min. Sleep architecture showed stage NI was normal 5.8%, Delta sleep was absent 0%, REM sleep was slightly short 15.4%. Respiratory channel showed 7 obstructive apneas, 0 mixed apneas, 0 central apneas, 27 hypopneas with lowest oxygen level 86%. Total apnea hypopnea index was 6.4. Heart rate was in the range between, average 66. EMG showed 5.6 periodic limb movements per hour with 0 micro-arousals per hour. IMPRESSIONS: 1. Obstructive sleep apnea hypopnea syndrome. 2. No significant periodic limb movements have been documented. 3. Hypertension Please see other impressions from consultation PLAN: 1. The patient will have AutoPAP treatment for correction of respiratory abnormalities during the sleep. 2. I will see patient for follow-up visit to evaluate clinical response on treatment, compliance with treatment and [place] adjustments related to mask fitting pressure and humidification 3. Sleep hygiene with regular time in bed for at least 7-1/2 hours. 4. No driving if feeling sleepiness. Thank you very much for allowing me to participate in the management of your patient. Sincerely, Rafita Shultz MD, PhD, FAASM. Diplomat of [place] [employer], Sleep Medicine Board by [employer] Continuous Improvement Consultant [facility] [place] cc: Deuce Cintron MD
== END 2024-11-28 06:00 | disposition home or self-care (01) ==
LOC: 3 N SLEEP 19:46
PROVIDERS: ATTEND Internal Medicine
DX: G47.33 Obstructive sleep apnea (adult) (pediatric) (principal); I10 Essential (primary) hypertension; Z91.041 Radiographic dye allergy status
CPT/HCPCS: 95810